=== PATIENT | male | born 1985 | race Two or more races ===

== ENCOUNTER 2016-09-22 16:43 | Emergency (ER) | payer OTHER ==
[2016-09-22] MEDS ORDERED: IOPAMIDOL 370 (76%) 100 ML VIAL IV ONE (16:44)
[2016-09-22] MEDS ORDERED: PREDNISONE 20 MG TABLET ONE (17:07)
[2016-09-22] MEDS ORDERED: OXYMETAZOLINE HCL 0.05% 30 SPRAYS/BOT NS ONE (17:07)
--- NOTE | 2016-09-22 18:01 | RAD ---
09/22/2016 5:58 PM CHEST - 2 VIEWS History: Cough for 2 days Comparison: None Findings: Two views of the chest are obtained. The lungs are clear with out effusion or pneumothorax. The cardiomediastinal silhouette is unremarkable.. The osseous structures are intact.. IMPRESSION: No acute intrathoracic process.
[2016-09-22] MEDS ORDERED: EPINEPHRINE 1 MG/ML 1ML AMP ONE (18:06)
[2016-09-22] MEDS ORDERED: DIPHENHYDRAMINE HCL 50 MG/1 ML VIAL ONE (18:11)
[2016-09-22 18:44] LABS: ABSOLUTE NEUTROPHIL COUNT 12.3 K/mm3 (1.8-7.7); BASO # 0.1 K/mm3 (0.0-0.2); BASO % 0.4 % (0.2-1.0); EOS # 0.1 (0.0-0.5); EOS % 0.3 % (0.9-2.9); HEMATOCRIT 45.8 % (32.0-52.0); HEMOGLOBIN 15.3 gm/l (14.0-18.0); IMM NEUT # 0.1 K/mm3 (0-0.2); IMM NEUT% 0.5 % (0-1); LYMPH # 1.8 (1.0-4.8); LYMPH % 11.7 % (15-45); MEAN CELL VOLUME 83.7 fl (80.0-94.0); MEAN CORPUSCULAR HGB CONC 33.4 g/dl (33.0-37.0); MEAN PLATELET VOLUME 12.1 fl (7.4-10.4); MONO % 6.5 % (4-12); NEUT % 80.6 % (43-75); PLATELET COUNT 164 K/mm3 (130-400); RED CELL DISTRIBUTION WIDTH 13.3 % (11.5-14.5)
[2016-09-22 18:57] LABS: ALB/GLOB RATIO 1.6 (>1.0); ALBUMIN 4.2 gm/dL (3.5-5.7); CALCIUM 9.4 mg/dL (8.6-10.3)
--- NOTE | 2016-09-22 19:43 | CT ---
NECK SOFT TISSUE W/ CON: 09/22/2016 6:12 PM CLINICAL INDICATION: Intermittent stridor COMPARISON: None. (MR) Sequences Performed: None (CT) Scan Technique: Contiguous axial 3 mm images were obtained from the AP window through the orbital meatal line after the uneventful IV ministration of contrast. Sagittal and coronal reformations were also obtained this time. Contrast: 80 ml of Isovue-370 contrast administered. FINDINGS: Orbits/Paranasal Sinuses/Skull Base: Normal Nasopharynx: There is some prominence to the adenoidal tissue at the level of Waldeyer's ring. Suprahyoid Neck: Prominence to the palatine and lingual tonsils is present. Tracheal air column is midline and symmetric. This does narrow to approximately 7 to 8 mm on axial image 35. Infrahyoid Neck: Apposition of the vocal cords is noted likely relating to formation or breath-hold during image acquisition. Otherwise normal Thyroid: Normal Thoracic Inlet: Normal Lymph Nodes: No adenopathy Vascular Structures: Normal Other Findings: Osseous structures are intact. IMPRESSION: Prominence to the tonsils and adenoids which may relate to the patient's stridor. No evidence of abscess or other abnormality. Report was uploaded to the electronic medical record at approximately 1939 hours on 09/22/2016
== END 2016-09-22 20:33 | disposition home or self-care (01) ==
LOC: ED 16:43
DX: J02.9 Acute pharyngitis, unspecified (principal); J38.5 Laryngeal spasm; J45.909 Unspecified asthma, uncomplicated
CPT/HCPCS: 85025; 80053; 71020; 70491; 99284 ×2; 96374; A9270; J1200; J7512; J0171; Q9967